=== PATIENT | male | born 1970 | race Caucasian/White ===

== ENCOUNTER → 2017-11-04 07:01 | Outpatient (CLI) | payer BC, SELFPAY ==
--- NOTE | 2017-11-04 08:08 | CA_ITS ---
PROCEDURE: 2-D M-mode and color Doppler study INDICATIONS FOR THE TEST: Chest pain+ COPD Heart Murmur Tobacco Smoking+ Palpitations Fatigue Syncope Edema Hypertension+Diabetes Mellitus Rheumatic Fever SOB [place]+Obesity Hyperlipidemia+ Family History HD+ Additional History PATIENT INFORMATION HEIGHT: 74 WEIGHT: 270 GENDER: Male B/P: 168/81 2-D/M-MODE INTERPRETATION: 2-D MEASUREMENTS OBSERVED VALUES IN CMS Right Ventricular Dimension (RVDd) 1.5 Interventricular Septum (Thickness)(IVsd) 1.0 Left Ventricular Internal Dimensions(LVIDd) 5.4 Left Ventricular Posterior Wall (Thickness)(LVPWd) 0.9 Aortic Root 3.0 Aortic Cusp Separation 2.4 Left Atrial Dimensions (LAD) 2.9 2D 1. Left atrium is normal size, left ventricle is normal size, there is mild concentric left ventricular hypertrophy, visually estimated ejection fraction 55% with no obvious regional wall motion abnormality. 2. The right atrium and right ventricle are relatively normal size and function. 3. The aortic valve is minimally thickened and fibrosed. 4. The mitral and tricuspid valve are grossly normal. 5. The pulmonic valve is poorly visualized. 6. No significant pericardial effusion noted. DOPPLER INTERROGATION: Doppler interrogation of the aortic, mitral and tricuspid valvular presence of mild mitral and tricuspid regurgitation, tricuspid regurgitant jet velocity insufficient for calculation of the right ventricular systolic pressure, grade 1 diastolic dysfunction seen without tissue Doppler evidence of raised left atrial pressure. CONCLUSION: 1. Normal left ventricular size, mild concentric left ventricular hypertrophy, visually estimated ejection fraction 55% with no obvious regional wall motion abnormality, grade 1 diastolic dysfunction seen without tissue Doppler evidence of raised left atrial pressure. 2. Mild mitral and tricuspid regurgitation 3. No significant pericardial effusion noted.
--- NOTE | 2017-11-04 08:08 | NM_ITS ---
History and Indications: Tobacco use, family history, chest pain and fatigue Procedure: Patient exercised on Coy protocol 7 minutes and 31 seconds, resting heart rate was 70 bpm, resting blood pressure 140/88, with exercise maximum heart rate achieved was 1 54 bpm which is equal to 90% of the maximum predicted heart rate and a blood pressure was 200/80. Test was started due to shortness of breath and fatigue patient denied any complained of chest pain. Patient has good exercise capacity achieved 10.1mets of workload on treadmill, the blood pressure response to exercise was adequate. Electrocardiogram: Resting electrocardiogram showed sinus rhythm, with exercise there is less than 1.[address] segment depression noted from the baseline EKG. The EKG portion of the exercise Myoview is negative for ischemia. Cardiac stress and resting SPECT images: Cardiac stress and rest SPECT images were obtained using technetium 99 Myoview 32.1 mCi at stress and the 10.2 mCi at rest. Gated SPECT further analysis of segmental wall motion and calculation of the ejection fraction also done. Cardiac stress and rest activity show uniform myocardial activity without any segmental perfusion abnormality, computer derived ejection fraction is 60% with no obvious regional wall motion abnormality, right ventricle is normal size and contractility. Conclusion: 1. The EKG portion of the exercise Myoview is negative for ischemia, patient has good exercise capacity achieved 10.1mets of workload on treadmill, the blood pressure response to exercise was adequate. There was no exercise-induced chest discomfort. 2. No obvious scintigraphic evidence of reversible ischemia seen, computer derived ejection fraction is 60% with no obvious regional wall motion abnormality, right ventricle is normal size and contractility. 3. Normal exercise Myoview study.
== END ==
PROVIDERS: PCP Internal Medicine; Visit Provider Internal Medicine
DX: R07.9 Chest pain, unspecified (principal)
CPT/HCPCS: 78452; 93017; 93306; A9502